=== PATIENT | male | born 1965 | race Caucasian/White ===

== ENCOUNTER 2018-11-22 19:48 | Observation (INO) ==
[2018-11-23] MEDS ORDERED: *HR* Dextrose 50 % in Water (Syg) 50 ML SYRINGE IVP PRN (00:03)
[2018-11-23] MEDS ORDERED: Dextrose Gel 15 GM/37.5 ML TUBE PO PRN ×2 (00:03)
[2018-11-23] MEDS ORDERED: 0.9 % Sodium Chloride 1,000 ML IVC SCH (00:30)
[2018-11-23] MEDS ORDERED: Acetaminophen 325 MG TABLET PO PRN (00:33)
[2018-11-23] MEDS ORDERED: *HR* OxyCODONE Immed Rel 5 MG TABLET PO PRN (00:33)
[2018-11-23] MEDS ORDERED: traMADol 50 MG TABLET PO PRN (00:33)
[2018-11-23] MEDS ORDERED: Naloxone 0.4 MG/ML INJ IVP PRN (00:33)
--- NOTE | 2018-11-23 00:33 | Internal Med History&Physical ---
Date of Encounter: 11/23/18 Time of Encounter: 00:31 Internal Medicine - H&P: HPI Chief complaint: right breast pain Admitted From: Home Plans for Post Hospital Care: Home History of present illness: Yasir Hernandez is a 52 year old morbidly obese man with diabetes, hypertension and chronic kidney disease who presented to [facility] complaining of pain and swelling around his right breast area for the past 6 days. He says he was seen at urgent care on Saturday where he was prescribed TMP/SMX and was told that it was not ready to be lanced yet. Due to the lack of improvement he was again seen at urgent care on Saturday where an antibiotic switch was made to clindamycin. Again he reported feeling no improvement and subsequently felt feverish with chills and sweats. He says he tried to poke it with a hot needle with some drainage obtained. Says the pain had become too severe and achy and upon arrival to [facility] seen that underneath his right breast fold he had a large abscess that was fluctuant intense and an area of erythema measured at 14 x 9 cm. Incision and drainage was performed the setting of large amount of foul-smelling purulent fluid was sent for culture. He was given a dose of cef azolin and clindamycin. Of note, he was seen to have a potassium of 5.8 with a repeat at 5.2 and creatinine of 2.5. No old records are available for comparison as he follows at an outside hospital. He was given insulin, dextrose, calcium gluconate and albuterol as temporizing measures. On arrival here he is in good spirits and has no complaints. He does admit to having multiple abscesses in the past. Past Med Surg Social Fam HX - Past Medical History Medical history: CHF, diabetes, hypertension, renal disease Psychiatric history: no psych history - Social History Smoking Status: Former smoker Smokeless Tobacco Status: No Alcohol use: none Drug use: none Internal Medicine - H&P: Meds Aspirin 81 mg PO DAILY 11/22/18 [History] Atorvastatin [Lipitor] 40 mg PO HS 11/22/18 [History] Ergocalciferol (VITAMIN D2) [Vitamin D2] 2,000 unit PO TID 11/22/18 [History] Furosemide [Lasix] 40 mg PO BID 11/22/18 [History] Glyburide/Metformin HCl [Glyburide-Metformin 5-500 mg] 1 each PO DAILY 11/22/18 [History] Insulin Glargine [Lantus] 70 unit SQ BID 11/22/18 [History] Insulin NPH Hum/Reg Insulin Hm [Humulin 70-30 Vial] 75 unit SQ BID 11/22/18 [History] Labetalol HCl 300 mg PO TID 11/22/18 [History] Lisinopril [Zestril] 10 mg PO DAILY 11/22/18 [History] Magnesium Oxide [Magnesium] 250 mg PO BID 11/22/18 [History] Omeprazole [PriLOSEC] 40 mg PO Q2D 11/22/18 [History] Allergy/AdvReac Type Severity Reaction Status Date / Time meperidine [From Demerol] Allergy Anaphylaxis Verified 11/22/18 17:48 All Systems PM: A 10-system review of systems was performed and is negative for pertinent findings except as documented above in the HPI. Family history reviewed and fou nd non-contributory. - Constitutional Vitals: Temp Pulse Resp BP Pulse Ox 99.7 F H 93 20 123/80 94 11/23/18 00:08 11/23/18 00:08 11/23/18 00:08 11/23/18 00:08 11/23/18 00:08 Exam: Vitals: Reviewed General: Morbidly obese white man sitting up in bed in [facility]. Skin: Tags and acanthosis nigricans on neck. HEENT: Moist mucous membranes. No conjunctivae pallor. Neck: No lymphadenopathy. No JVD. No carotid bruits. No palpable thyroid. Chest: Normal thoracic expansion. Normal breath sounds. Right submamary region with diffuse erythema and induration with a 3cm ulceration at the base that is packed with iodoform. Heart: Normal S1 & S2; rhythmic. No rubs or murmurs. Abdomen: Soft and non-tender to palpation. No peritoneal reaction. Extremities: 3+ pitting edema with active suppuration and hyperpigmentation. Neurological: Awake, alert and oriented to person, place and time. No focal deficits. Psych: Affect appropriate. - Assessment and plan (1) Abscess of right breast Current Visit: Yes Status: Acute Assessment and plan: The patient has the risk factors of morbid obesity and diabetes as well as seemingly poor skin care. He still has significant inflammatory changes present. Will get a CT scan for assessment of the depth of tissue invasion. Will order peripheral blood cultures and start IV vancomycin. The fluid cultures sent at [facility] need to be followed up on to determine adequacy in antibiotic treatment. Will also consult surgery for evaluation given the delicate area and possible need for more I&D. (2) Hyperkalemia Current Visit: Yes Status: Acute Assessment and plan: Seems related to his CKD; he may have a variant of RTA causing this. Will repeat and monitor closely. 1 dose of kayexalate ordered after being given the temporizing measures to lower it. No concerning EKG changes reported. (3) CKD (chronic kidney disease) Current Visit: Yes Status: Acute Assessment and plan: He follows with a doorperson at [facility]. Will avoid contrast and nephrotoxic agents. Qualifiers: Chronic kidney disease stage: stage 3 (moderate) Qualified Code(s): N18.3 - Chronic kidney disease, stage 3 (moderate) (4) HTN (hypertension) Current Visit: Yes Status: Acute Assessment and plan: Will resume his home oral antihypertensive therapy once verified. Qualifiers: Hypertension type: essential hypertension Qualified Code(s): I10 - Essential (primary) hypertension (5) Diabetes mellitus Current Visit: Yes Status: Acute Assessment and plan: He is seen to be on high doses of insulin. Will continue glargine BID as currently dosed at home and use sliding scale coverage rather than the fixed 70/30 for now. Hold oral agents in the interim. Qualifiers: Diabetes mellitus type: type 2 Diabetes mellitus nursing home insulin use: with nursing home use Diabetes mellitus complication status: with kidney complications Diabetes mellitus complication detail: with chronic kidney disease Chronic kidney disease stage: stage 3 (moderate) Qualified Code(s): E11.22 - Type 2 diabetes mellitus with diabetic chronic kidney disease; N18.3 - Chronic kidney disease, stage 3 (moderate); Z79.4 - intermodal dispatcher (current) use of insulin (6) CHF (congestive heart failure) Current Visit: Yes Status: Chronic Assessment and plan: Reported. No signs of acute exacerbation at this time. Will resume his home medications once verified. Qualifiers: Heart failure type: unspecified Heart failure chronicity: chronic Qualified Code(s): I50.9 - Heart failure, unspecified (7) Venous stasis dermatitis of both lower extremities Current Visit: Yes Status: Acute Assessment and plan: Leg elevation and compression stockings advised. (8) DVT prophylaxis Current Visit: Yes Status: Acute Assessment and plan: SubQ heparin ordered. - Time Spent With Patient Total time spent is greater than 50% in coordination of care (as documented) at patient's floor/unit and/or counseling patient: Greater than 35 minutes
[2018-11-23 00:38] LABS: Basophils % 0.2 %; Eosinophils # 0.5 K/mcL (0.0-0.6); Eosinophils % 3.7 %; Hematocrit 44.9 % (37.5-50.1); Hemoglobin 13.9 g/dL (12.9-16.9); Immature Granulocytes % 0.7 % (0-4); Lymphocytes # 0.6 K/mcL (0.6-4.6); Mean Corpuscular Hemoglobin 29.3 pg (28.0-33.3); Mean Corpuscular Volume 94.5 fL (83.0-100.0); Mean Platelet Volume 10.7 fL (9.4-12.4); Monocytes # 1.1 K/mcL (0.0-1.3); Monocytes % 7.6 %; Neutrophils # 11.9 K/mcL (1.6-8.9); Platelet Count 209 K/mcL (140-400); Red Blood Count 4.75 M/mcL (4.19-5.50); Red Cell Distribution Width 14.2 % (11.5-14.5); Segmented Neutrophils % 83.8 %
[2018-11-23 00:45] LABS: INR 1.1; Prothrombin Time 11.9 Seconds (9.4-12.1)
[2018-11-23 00:48] LABS: Activated Partial Thrombo Time 29.3 Seconds (26.0-36.0)
[2018-11-23 00:55] LABS: Calcium 8.7 mg/dL (8.6-10.3); Potassium 5.1 mEq/L (3.5-5.1)
[2018-11-23] MEDS ORDERED: Vancomycin 0 MG in 0.9 % Sodium Chloride 250 ML IVPB SCH (01:00)
[2018-11-23] MEDS: Insulin LISPRO 300 UNITS/3 ML VIAL SQ SCH ×5 (01:29→20:20)
[2018-11-23] MEDS: *HR* Heparin 5,000 UNIT/ML VIAL SQ SCH ×3 (06:54→20:02)
--- NOTE | 2018-11-23 07:58 | Event Note ---
Date of Encounter: 11/23/18 Time of Encounter: 11:10 Mr Hernandez was placed in observation earlier today for abscess/cellulitis under R breast. Mr Hernandez is feeling about the same. He has packing in place. No fever or chills. Still with a lot of erythema around area. CT performed - cellulitis. Plan Agree with assessment and plan per H&P Surgical follow up outpatient Add Zosyn today.
[2018-11-23] MEDS: Aspirin 81 MG TAB.CHEW PO SCH (09:01)
[2018-11-23] MEDS: Piperacillin/Tazobactam 3.375 GM in 0.9 % Sodium Chloride Mini Bag 100 ML IVPB SCH (15:25)
[2018-11-23] MEDS: Insulin DETEMIR 100 UNIT/ML X5UNITS SQ SCH ×2 (15:27→20:02)
[2018-11-24] MEDS: Piperacillin/Tazobactam 3.375 GM in 0.9 % Sodium Chloride Mini Bag 100 ML IVPB SCH ×3 (00:20→15:41)
[2018-11-24] MEDS: *HR* Heparin 5,000 UNIT/ML VIAL SQ SCH ×2 (05:58→14:24)
[2018-11-24] MEDS: Insulin LISPRO 300 UNITS/3 ML VIAL SQ SCH ×4 (07:52→16:53)
[2018-11-24 07:53] LABS: Hematocrit 38.2 % (37.5-50.1); Mean Corpuscular HGB Conc 31.7 g/dL (31.6-35.5); Mean Corpuscular Hemoglobin 29.2 pg (28.0-33.3); Mean Corpuscular Volume 92.3 fL (83.0-100.0); Mean Platelet Volume 10.6 fL (9.4-12.4); Platelet Count 175 K/mcL (140-400); Red Blood Count 4.14 M/mcL (4.19-5.50); Red Cell Distribution Width 14.5 % (11.5-14.5)
[2018-11-24 08:01] LABS: Hemoglobin 12.1 g/dL (12.9-16.9)
[2018-11-24] MEDS: Insulin DETEMIR 100 UNIT/ML X5UNITS SQ SCH (08:01)
[2018-11-24] MEDS: Aspirin 81 MG TAB.CHEW PO SCH (08:02)
[2018-11-24 08:13] LABS: Calcium 8.7 mg/dL (8.6-10.3); Magnesium 1.8 mg/dL (1.6-2.6); Potassium 4.6 mEq/L (3.5-5.1)
--- NOTE | 2018-11-24 14:25 | Discharge Summary ---
<Page Carcamo - Last Filed: 11/24/18 14:53> - NOTES TO OUTPATIENT PROVIDER Notes to Outpatient Provider: Patient will be discharge on augmentin and doxycycline to complete a 14 day course. Preliminary wound culture growing normal skin andreas and final results will need to be verified. The wound is packed with iodoform that will be changed prior to discharge. He will need follow up 11/[address] [place] [address] Middleton and further wound care instructions after that. Orders not resulted at time of discharge: Pending orders 11/23/18 00:24 Culture,Blood [BC] Stat 11/25/18 02:00 Vancomycin,Trough Timed Date of Encounter: 11/24/18 Time of Encounter: 14:24 - Discharge Diagnosis (1) Abscess of right breast Priority: Primary Status: Acute (2) Cellulitis of right breast Priority: Secondary Status: Acute (3) CKD (chronic kidney disease) Priority: Secondary Status: Chronic Qualifiers: Chronic kidney disease stage: stage 3 (moderate) Qualified Code(s): N18.3 - Chronic kidney disease, stage 3 (moderate) (4) Diabetes mellitus Priority: Secondary Status: Chronic Qualifiers: Diabetes mellitus type: type 2 Diabetes mellitus long-term insulin use: with long-term use Diabetes mellitus complication status: with kidney complications Diabetes mellitus complication detail: with chronic kidney disease Chronic kidney disease stage: stage 3 (moderate) Qualified Code(s): E11.22 - Type 2 diabetes mellitus with diabetic chronic kidney disease; N18.3 - Chronic kidney disease, stage 3 (moderate); Z79.4 - manager intermediate (current) use of insulin (5) HTN (hypertension) Priority: Secondary Status: Chronic Qualifiers: Hypertension type: essential hypertension Qualified Code(s): I10 - Essential (primary) hypertension (6) Venous stasis dermatitis of both lower extremities Priority: Secondary Status: Chronic (7) CHF (congestive heart failure) Priority: Secondary Status: Chronic Qualifiers: Heart failure type: unspecified Heart failure chronicity: chronic Qualified Code(s): I50.9 - Heart failure, unspecified Hospital course: Mr. Hernandez is a 52 year old male who was admitted to [facility] 11/23/18-11/24/18 for IV antibiotic treatment of cellulitis and abscess underneath the right breast. He had been experiencing increased pain and swelling 6 days prior and was seen at 11/18 and given TMP/SMX. He did not see much improvement and was switched to clindamycin 11/21. He began to feel feverish and had attempted to I&D the lesion himself with a hot needle, obtaining minimal drainage. He presented to [place] ED 11/22 when the pain became severe. Upont initial presentation to [place] he was noticed to have a fluctuant area of erythema, and I&D was performed with a large amount of foul smelling purulent fluid. Wound culture was sent that is preliminarily growing normal skin andreas. He was given a dose of cefazolin and clindamycin at that time. He was found to have a potassium of 5.8 with a repeat at 5.2 and creatinine of 2.5. No old records are available for comparison as he follows at an outside hospital. He was given insulin, dextrose, calcium gluconate and albuterol as temporizing measures. He was transferred to [facility] for further management. He has been treated with vancomycin and zosyn. His cellulitis is improved and his potassium has normalized. He has been afebrile. The case was discussed wt Dr. Middleton with General Surgery who will follow him in the outpatient setting at [facility]. The patient will be discharged with oral augmentin at renal dose and doxycycline to complete a total 14 day course of antibiotics. Discharge discussed with: patient, family, nurse - Time Spent with Patient Total time spent providing and/or coordinating discharge services: - Discharge Medications Prescriptions: Adhesive Bandage [Adhesive Gauze Pad] 1 each TP BID #10 bandage Amoxicillin/Clavulanate [Augmentin] 500 mg PO BIDWM 12 Days #24 tablet Doxycycline 100 mg PO BID 12 Days #24 capsule Gauze Bandage [Curity] 1 each TP BID #10 sponge Home Medications: Aspirin 81 mg PO DAILY 11/22/18 [History] Atorvastatin [Lipitor] 40 mg PO HS 11/22/18 [History] Ergocalciferol (VITAMIN D2) [Vitamin D2] 2,000 unit PO TID 11/22/18 [History] Furosemide [Lasix] 40 mg PO BID 11/22/18 [History] Glyburide/Metformin HCl [Glyburide-Metformin 5-500 mg] 1 each PO DAILY 11/22/18 [History] Insulin Glargine [Lantus] 70 unit SQ BID 11/22/18 [History] Insulin NPH Hum/Reg Insulin Hm [Humulin 70-30 Vial] 75 unit SQ BID 11/22/18 [History] Labetalol HCl 300 mg PO TID 11/22/18 [History] Lisinopril [Zestril] 10 mg PO DAILY 11/22/18 [History] Magnesium Oxide [Magnesium] 250 mg PO BID 11/22/18 [History] Omeprazole [PriLOSEC] 40 mg PO Q2D 11/22/18 [History] Adhesive Bandage [Adhesive Gauze Pad] 1 each TP BID #10 bandage 11/24/18 [Rx] Amoxicillin/Clavulanate [Augmentin] 500 mg PO BIDWM 12 Days #24 tablet 11/24/18 [Rx] Doxycycline 100 mg PO BID 12 Days #24 capsule 11/24/18 [Rx] Gauze Bandage [Curity] 1 each TP BID #10 sponge 11/24/18 [Rx] Allergies/Adverse Reactions: 3 Allergy/AdvReac Type Severity Reaction Status Date / Time meperidine [From Demerol] Allergy Anaphylaxis Verified 11/22/18 17:48 Date of admission: 11/22/18 23:52 Primary care physician: PCP NONE - Constitutional Vitals: Temp Pulse Resp BP Pulse Ox 98.5 F 73 16 116/75 94 11/24/18 10:55 11/24/18 10:55 11/24/18 10:55 11/24/18 10:55 11/24/18 10:55 Exam: General: Alert and in no acute distress, morbidly obese Skin: Warm, dry, erythema under right breast with 3cm incision site that is packed, serosanguinous drainage. numerous skin tags and acanthosis nigricans on neck HEENT: NC/AT, PERRLA, EOMI, trachea midline Cardiovascular: RRR, no murmur, normal perfusion, peripheral pulses 2+ and equal Respiratory: CTAB, no wheezing, cough, or respiratory distress GI: Soft, nontender, nondistended. Bowel sounds present, obese Extremities: 2+ pitting edea, chronic venous stasis changes Neuro: A&O. No focal deficits noted on exam Psychiatric: Cooperative and appropriate mood and affect - Patient Status Disposition: Home, Self-Care Condition: Good Functional capacity at discharge: independent ambulation Overall status at discharge: patient is progressing back to baseline - Discharge Instructions Instructions: Heart Failure (DC), Breast Abscess Drainage (DC), Chronic Kidney Disease (DC), Diabetes Mellitus Type 2 in Adults (DC), Hyperkalemia (DC), Chronic Hypertension (DC) Follow Up With: Yifan Middleton DO [Partnered Physician] - 11/25/18 4:30 pm (f/u in [place]) Additional Instructions: Keep wound packing in place until you see Dr. Middleton. Keep the area dry, cover with plastic if you shower. Do not immerse in water. Change gauze twice daily or more if there is more drainage. - Diet and Activity Activity: increase activity as tolerated Diet: diabetic diet <Naveen Donnelly - Last Filed: 11/24/18 16:09> Orders not resulted at time of discharge: Pending orders 11/23/18 00:24 Culture,Blood [BC] Stat 11/25/18 02:00 Vancomycin,Trough Timed Date of Encounter: 11/24/18 - Discharge Diagnosis (1) Abscess of right breast Status: Acute (2) Hyperkalemia Priority: Secondary Status: Resolved (3) CKD (chronic kidney disease) Status: Chronic Qualifiers: Chronic kidney disease stage: stage 3 (moderate) Qualified Code(s): N18.3 - Chronic kidney disease, stage 3 (moderate) (4) HTN (hypertension) Status: Chronic Qualifiers: Hypertension type: essential hypertension Qualified Code(s): I10 - Essential (primary) hypertension (5) Diabetes mellitus Status: Chronic Qualifiers: Diabetes mellitus type: type 2 Diabetes mellitus long-term insulin use: with manager intermediate use Diabetes mellitus complication status: with kidney complications Diabetes mellitus complication detail: with chronic kidney disease Chronic kidney disease stage: stage 3 (moderate) Qualified Code(s): E11.22 - Type 2 diabetes mellitus with diabetic chronic kidney disease; N18.3 - Chronic kidney disease, stage 3 (moderate); Z79.4 - penitentiary (current) use of insulin (6) CHF (congestive heart failure) Status: Suspected Qualifiers: Heart failure type: diastolic Heart failure chronicity: chronic Qualified Code(s): I50.32 - Chronic diastolic (congestive) heart failure (7) Venous stasis dermatitis of both lower extremities Status: Chronic (8) Morbid obesity with BMI of 50.0-59.9, adult Priority: Secondary Status: Chronic Hospital course: Mr. Hernandez is a 52 year old male - Time Spent with Patient Total time spent providing and/or coordinating discharge services: Date of admission: 11/22/18 23:52 Primary care physician: PCP NONE - Constitutional Vitals: Temp Pulse Resp BP Pulse Ox 98.9 F 74 19 143/84 94 11/24/18 14:00 11/24/18 14:00 11/24/18 14:00 11/24/18 14:00 11/24/18 14:00 - Attending Attestation I examined this patient and my medical decision-making was reviewed with the Resident Physician on 11/24/18. I agree with the documented findings, disposition and treatment plan as described except to the extent set forth below. Mr Hernnadez has been in observation for cellulitis and abscess under R breast. He had I&D and prelim culture with normal andreas. Final culture to return tomorrow. He has been on IV abx and it has been improving. He is afebrile and WBC now normal. He is ready for discharge home with outpatient surgery follow up. Exam Alert Comfortable Skin under R breas less erythematous. It is still thickened. Less drainage. Packing in place. Not tachycardic No wheeze Plan D/C home today Wound care Follow with surgery this Thurs Augmentin and Doxy
[2018-11-24 15:12] VITALS: BP 143/84
[2018-11-24] MEDS ORDERED: Aminoglycoside Consult 1 EACH MC ONE (19:56)
== END 2018-11-24 19:57 | disposition home or self-care (01) ==
LOC: 3ANU → SUATTDRO 23:52 → 3ANU 11-23 02:16
PROVIDERS: ADMIT Internal Medicine; ATTEND Internal Medicine

== ENCOUNTER 2021-09-22 12:42 | Inpatient (IN) ==
[2021-09-22] MEDS ORDERED: Piperacillin/Tazobactam 3.375 GM in 0.9 % Sodium Chloride Mini Bag 100 ML IVPB ONE (12:58)
[2021-09-22] MEDS ORDERED: Ondansetron 4 MG/2 ML VIAL IVP PRN (13:40)
[2021-09-22] MEDS ORDERED: Naloxone 0.4 MG/ML INJ IVP PRN (13:40)
[2021-09-22] MEDS ORDERED: Acetaminophen 325 MG TABLET PO PRN (13:40)
[2021-09-22 13:55] LABS: Basophils % 0.3 %; Eosinophils # 0.2 K/mcL (0.0-0.6); Hematocrit 41.7 % (37.5-50.1); Hemoglobin 12.7 g/dL (12.9-16.9); Immature Granulocytes % 0.3 % (0-4); Lymphocytes # 0.8 K/mcL (0.6-4.6); Lymphocytes % 6.7 %; Mean Corpuscular HGB Conc 30.5 g/dL (31.6-35.5); Mean Corpuscular Hemoglobin 28.9 pg (28.0-33.3); Mean Platelet Volume 10.8 fL (9.4-12.4); Monocytes # 0.9 K/mcL (0.0-1.3); Monocytes % 7.2 %; Neutrophils # 10.2 K/mcL (1.6-8.9); Platelet Count 244 K/mcL (140-400); Red Blood Count 4.39 M/mcL (4.19-5.50); Red Cell Distribution Width 14.7 % (11.5-14.5); Segmented Neutrophils % 83.5 %; White Blood Count 12.2 K/mcL (4.3-11.1)
[2021-09-22 14:09] LABS: Calcium 8.9 mg/dL (8.6-10.3); Potassium 4.6 mEq/L (3.5-5.1)
[2021-09-22] MEDS ORDERED: Vancomycin 2,000 MG/520 ML IV.SOLN IVPB ONE (16:00)
[2021-09-22] MEDS ORDERED: Piperacillin/Tazobactam 3.375 GM in 0.9 % Sodium Chloride Mini Bag 100 ML IVPB SCH (22:00)
[2021-09-23 05:09] LABS: Basophils # 0.1 K/mcL (0.0-0.2); Basophils % 0.4 %; Eosinophils # 0.3 K/mcL (0.0-0.6); Hematocrit 39.3 % (37.5-50.1); Hemoglobin 11.9 g/dL (12.9-16.9); Immature Granulocytes % 0.5 % (0-4); Lymphocytes # 0.7 K/mcL (0.6-4.6); Lymphocytes % 5.5 %; Mean Corpuscular HGB Conc 30.3 g/dL (31.6-35.5); Mean Corpuscular Hemoglobin 28.2 pg (28.0-33.3); Mean Corpuscular Volume 93.1 fL (83.0-100.0); Mean Platelet Volume 10.9 fL (9.4-12.4); Monocytes # 0.9 K/mcL (0.0-1.3); Monocytes % 6.7 %; Platelet Count 245 K/mcL (140-400); Red Blood Count 4.22 M/mcL (4.19-5.50); Red Cell Distribution Width 14.9 % (11.5-14.5); Segmented Neutrophils % 84.9 %
[2021-09-23 05:11] LABS: Calcium 8.6 mg/dL (8.6-10.3); Magnesium 1.8 mg/dL (1.6-2.6); Potassium 4.5 mEq/L (3.5-5.1)
[2021-09-23 05:14] LABS: INR 1.3; Prothrombin Time 14.7 Seconds (9.4-12.1)
[2021-09-23] MEDS: *HR* Heparin 5,000 UNIT/ML VIAL SQ SCH ×2 (07:16→17:30)
[2021-09-23] MEDS ORDERED: metOLazone 5 MG TABLET PO PRN (09:12)
[2021-09-23] MEDS ORDERED: D5% in Water 1,000 ML IVC PRN (09:21)
[2021-09-23] MEDS ORDERED: *HR* Dextrose 50 % in Water (Syg) 50 ML SYRINGE IVP PRN (09:21)
[2021-09-23] MEDS ORDERED: Dextrose Gel 15 GM/37.5 ML TUBE PO PRN ×2 (09:21)
[2021-09-23] MEDS ORDERED: Ipratropium/Albuterol Neb 3 ML IH PRN (09:23)
[2021-09-23] MEDS: Furosemide 40 MG TABLET PO SCH (12:40)
[2021-09-23] MEDS: Aspirin 81 MG TAB.CHEW PO SCH (12:40)
[2021-09-23] MEDS: Insulin LISPRO 300 UNITS/3 ML VIAL SUBQ SCH ×3 (12:41→21:00)
[2021-09-23] MEDS: carvediloL 25 MG TABLET PO SCH (20:26)
[2021-09-24 05:30] LABS: Basophils % 0.3 %; Eosinophils # 0.3 K/mcL (0.0-0.6); Eosinophils % 2.3 %; Hematocrit 41.1 % (37.5-50.1); Hemoglobin 12.1 g/dL (12.9-16.9); Immature Granulocytes % 0.4 % (0-4); Lymphocytes # 0.8 K/mcL (0.6-4.6); Lymphocytes % 5.9 %; Mean Corpuscular HGB Conc 29.4 g/dL (31.6-35.5); Mean Corpuscular Hemoglobin 28.2 pg (28.0-33.3); Mean Corpuscular Volume 95.8 fL (83.0-100.0); Mean Platelet Volume 10.5 fL (9.4-12.4); Monocytes # 0.9 K/mcL (0.0-1.3); Monocytes % 6.7 %; Neutrophils # 10.9 K/mcL (1.6-8.9); Platelet Count 238 K/mcL (140-400); Red Blood Count 4.29 M/mcL (4.19-5.50); Segmented Neutrophils % 84.4 %; White Blood Count 12.9 K/mcL (4.3-11.1)
[2021-09-24 05:47] LABS: Calcium 8.7 mg/dL (8.6-10.3); Potassium 4.8 mEq/L (3.5-5.1)
[2021-09-24] MEDS: *HR* Heparin 5,000 UNIT/ML VIAL SQ SCH ×2 (07:03→17:54)
[2021-09-24] MEDS: Insulin LISPRO 300 UNITS/3 ML VIAL SUBQ SCH ×4 (07:49→21:05)
[2021-09-24] MEDS: Aspirin 81 MG TAB.CHEW PO SCH (07:55)
[2021-09-24] MEDS: carvediloL 25 MG TABLET PO SCH ×2 (07:55→20:56)
[2021-09-24] MEDS: Cholecalciferol (D-3) 1,000 UNIT (25MCG) TABLET PO SCH (07:55)
[2021-09-24] MEDS: Furosemide 40 MG TABLET PO SCH (07:55)
[2021-09-24] MEDS: Magnesium Oxide 400 MG TABLET PO SCH (07:55)
[2021-09-24] MEDS: allopurinoL 100 MG TABLET PO SCH (07:56)
[2021-09-24] MEDS: Cyanocobalamin (B-12) 1,000 MCG TABLET PO SCH (07:56)
[2021-09-24] MEDS: *HR* OxyCODONE Immed Rel 5 MG TABLET PO PRN (14:52)
[2021-09-25 00:58] LABS: Basophils % 0.2 %; Eosinophils # 0.3 K/mcL (0.0-0.6); Eosinophils % 2.2 %; Hematocrit 39.6 % (37.5-50.1); Hemoglobin 11.6 g/dL (12.9-16.9); Immature Granulocytes % 0.6 % (0-4); Lymphocytes # 0.6 K/mcL (0.6-4.6); Lymphocytes % 4.4 %; Mean Corpuscular HGB Conc 29.3 g/dL (31.6-35.5); Mean Corpuscular Hemoglobin 28.2 pg (28.0-33.3); Mean Corpuscular Volume 96.1 fL (83.0-100.0); Mean Platelet Volume 10.8 fL (9.4-12.4); Monocytes # 0.9 K/mcL (0.0-1.3); Monocytes % 6.5 %; Neutrophils # 11.8 K/mcL (1.6-8.9); Platelet Count 220 K/mcL (140-400); Red Blood Count 4.12 M/mcL (4.19-5.50); Red Cell Distribution Width 14.7 % (11.5-14.5); Segmented Neutrophils % 86.1 %; White Blood Count 13.7 K/mcL (4.3-11.1)
[2021-09-25 01:13] LABS: Calcium 8.7 mg/dL (8.6-10.3)
[2021-09-25] MEDS: *HR* Heparin 5,000 UNIT/ML VIAL SQ SCH ×2 (08:15→17:09)
[2021-09-25] MEDS: Furosemide 40 MG TABLET PO SCH (08:21)
[2021-09-25] MEDS: carvediloL 25 MG TABLET PO SCH ×2 (08:32→21:50)
[2021-09-25] MEDS: allopurinoL 100 MG TABLET PO SCH (08:33)
[2021-09-25] MEDS: Cyanocobalamin (B-12) 1,000 MCG TABLET PO SCH (08:34)
[2021-09-25] MEDS: Magnesium Oxide 400 MG TABLET PO SCH (08:34)
[2021-09-25] MEDS: Aspirin 81 MG TAB.CHEW PO SCH (08:34)
[2021-09-25] MEDS: Cholecalciferol (D-3) 1,000 UNIT (25MCG) TABLET PO SCH (08:34)
[2021-09-25] MEDS: Insulin LISPRO 300 UNITS/3 ML VIAL SUBQ SCH ×4 (08:36→21:52)
[2021-09-25] MEDS ORDERED: *HR* FentaNYL (PF) 100 MCG/2 ML VIAL IVP PRN (09:15)
[2021-09-25] MEDS ORDERED: *HR* HYDROmorphone PF 0.5 MG/0.5 ML SYRINGE IVP PRN (09:15)
[2021-09-25] MEDS ORDERED: 0.9 % Sodium Chloride 1,000 ML IVC SCH (11:00)
[2021-09-25] MEDS ORDERED: *HR* FentaNYL (PF) 100 MCG/2 ML VIAL ONE (11:20)
[2021-09-25] MEDS ORDERED: *HR* Midazolam HCl 2 MG/2 ML VIAL ONE (11:20)
[2021-09-25] MEDS ORDERED: Lidocaine -MPF 2% 5 ML VIAL ONE (11:22)
[2021-09-25] MEDS ORDERED: 0.9 % Sodium Chloride 1,000 ML ONE (11:30)
[2021-09-25] MEDS ORDERED: ceFAZolin 3,000 MG in Water for inj. (sterile) 30 ML IVP ONE (11:30)
[2021-09-25] MEDS ORDERED: Famotidine 20 MG/2 ML VIAL IVP ONE (11:45)
[2021-09-25] MEDS ORDERED: Acetaminophen IV 1,000 MG/100 ML BAG IVPB ONE (11:45)
[2021-09-25] MEDS ORDERED: Bupivacaine-MPF 0.25% 10 ML VIAL ONE (12:40)
[2021-09-25] MEDS ORDERED: EPHEDrine 50 MG/ML VIAL ONE (13:25)
[2021-09-25] MEDS ORDERED: Ondansetron 4 MG/2 ML VIAL ONE (13:36)
[2021-09-25] MEDS ORDERED: Ondansetron 4 MG/2 ML VIAL IVP PRN (14:21)
[2021-09-25] MEDS: 0.9 % Sodium Chloride 1,000 ML IVC SCH (16:07)
[2021-09-25] MEDS: DAPTOmycin 750 MG in 0.9 % Sodium Chloride 100 ML IVPB SCH (16:08)
[2021-09-25] MEDS: Piperacillin/Tazobactam 3.375 GM in 0.9 % Sodium Chloride Mini Bag 100 ML IVPB SCH (17:08)
[2021-09-26] MEDS: Piperacillin/Tazobactam 3.375 GM in 0.9 % Sodium Chloride Mini Bag 100 ML IVPB SCH ×3 (00:04→17:03)
[2021-09-26 02:26] LABS: Basophils % 0.3 %; Eosinophils # 0.1 K/mcL (0.0-0.6); Eosinophils % 0.5 %; Hematocrit 39.5 % (37.5-50.1); Hemoglobin 11.6 g/dL (12.9-16.9); Immature Granulocytes % 0.9 % (0-4); Lymphocytes # 0.5 K/mcL (0.6-4.6); Lymphocytes % 3.4 %; Mean Corpuscular HGB Conc 29.4 g/dL (31.6-35.5); Mean Corpuscular Hemoglobin 29.1 pg (28.0-33.3); Mean Corpuscular Volume 99.2 fL (83.0-100.0); Mean Platelet Volume 10.5 fL (9.4-12.4); Monocytes # 0.8 K/mcL (0.0-1.3); Monocytes % 5.2 %; Neutrophils # 13.6 K/mcL (1.6-8.9); Nucleated Red Blood Cells 0.1 /100 WBC (0); Platelet Count 233 K/mcL (140-400); Red Blood Count 3.98 M/mcL (4.19-5.50); Red Cell Distribution Width 14.7 % (11.5-14.5); Segmented Neutrophils % 89.7 %; White Blood Count 15.1 K/mcL (4.3-11.1)
[2021-09-26] MEDS: *HR* OxyCODONE Immed Rel 5 MG TABLET PO PRN (02:51)
[2021-09-26 03:44] LABS: Calcium 8.7 mg/dL (8.6-10.3); Potassium 6.3 mEq/L (3.5-5.1)
[2021-09-26] MEDS: *HR* Heparin 5,000 UNIT/ML VIAL SQ SCH ×2 (05:00→17:20)
[2021-09-26] MEDS: Insulin LISPRO 300 UNITS/3 ML VIAL SUBQ SCH ×4 (07:52→21:15)
[2021-09-26] MEDS: Cyanocobalamin (B-12) 1,000 MCG TABLET PO SCH (07:57)
[2021-09-26] MEDS: Cholecalciferol (D-3) 1,000 UNIT (25MCG) TABLET PO SCH (07:58)
[2021-09-26] MEDS: carvediloL 25 MG TABLET PO SCH ×2 (07:58→18:26)
[2021-09-26] MEDS: allopurinoL 100 MG TABLET PO SCH (07:59)
[2021-09-26] MEDS: Furosemide 40 MG TABLET PO SCH (07:59)
[2021-09-26] MEDS: Magnesium Oxide 400 MG TABLET PO SCH (07:59)
[2021-09-26] MEDS: Aspirin 81 MG TAB.CHEW PO SCH (07:59)
[2021-09-26] MEDS: SODIUM ZIRCONIUM CYCLOSILICATE 5 GM POWD.PACK PO SCH (10:34)
[2021-09-26 12:03] LABS: Uric Acid 9.4 mg/dL (2.3-7.6)
[2021-09-26 14:10] LABS: ABG Base Excess -5 mEq/L (-2 to 3); ABG HCO3 25 mEq/L (21-27); ABG Oxygen Saturation 49 % (95-98); ABG PCO2 71 mmHg (35-45); ABG PH 7.16 pH Units (7.32-7.45); ABG PO2 34 mmHg (85-104); ABG TCO2 27 mEq/L (20-26)
[2021-09-26] MEDS: DAPTOmycin 750 MG in 0.9 % Sodium Chloride 100 ML IVPB SCH (16:57)
[2021-09-26 17:30] LABS: ABG Base Excess -5 mEq/L (-2 to 3); ABG HCO3 27 mEq/L (21-27); ABG Oxygen Saturation 96 % (95-98); ABG PCO2 93 mmHg (35-45); ABG PH 7.08 pH Units (7.32-7.45); ABG PO2 114 mmHg (85-104); ABG TCO2 30 mEq/L (20-26)
[2021-09-26] MEDS ORDERED: *HR* LORazepam 2 MG/ML VIAL IVP ONE (19:39)
[2021-09-26 21:42] LABS: Calcium 8.5 mg/dL (8.6-10.3); Potassium 5.8 mEq/L (3.5-5.1)
[2021-09-26] MEDS ORDERED: Calcium Gluconate 1gm/50mL 1 GM/50 ML BAG IVPB ONE (22:15)
[2021-09-26] MEDS ORDERED: Insulin Human Regular 5 UNIT in 0.9 % Sodium Chloride 10 ML IV ONE (22:44)
[2021-09-26] MEDS ORDERED: Albuterol 2.5 MG/3 ML NEBULIZER IH ONE (22:45)
[2021-09-27] MEDS: Piperacillin/Tazobactam 3.375 GM in 0.9 % Sodium Chloride Mini Bag 100 ML IVPB SCH ×3 (01:05→17:55)
[2021-09-27 02:06] LABS: Basophils # 0.1 K/mcL (0.0-0.2); Basophils % 0.4 %; Eosinophils # 0.2 K/mcL (0.0-0.6); Eosinophils % 1.3 %; Hematocrit 41.2 % (37.5-50.1); Hemoglobin 11.9 g/dL (12.9-16.9); Lymphocytes # 0.5 K/mcL (0.6-4.6); Lymphocytes % 4.1 %; Mean Corpuscular HGB Conc 28.9 g/dL (31.6-35.5); Mean Corpuscular Hemoglobin 28.5 pg (28.0-33.3); Mean Corpuscular Volume 98.8 fL (83.0-100.0); Mean Platelet Volume 10.7 fL (9.4-12.4); Monocytes # 0.8 K/mcL (0.0-1.3); Monocytes % 6.6 %; Neutrophils # 10.7 K/mcL (1.6-8.9); Platelet Count 249 K/mcL (140-400); Red Blood Count 4.17 M/mcL (4.19-5.50); Red Cell Distribution Width 14.6 % (11.5-14.5); Segmented Neutrophils % 86.6 %; White Blood Count 12.4 K/mcL (4.3-11.1)
[2021-09-27 02:22] LABS: Calcium 8.6 mg/dL (8.6-10.3); Potassium 5.8 mEq/L (3.5-5.1)
[2021-09-27 02:29] LABS: Anisocytosis 1+ (Not Present); Platelet Estimate Normal (Normal)
[2021-09-27] MEDS ORDERED: Insulin Human Regular 5 UNIT in 0.9 % Sodium Chloride 10 ML IV ONE (03:06)
[2021-09-27] MEDS ORDERED: Calcium Gluconate 1gm/50mL 1 GM/50 ML BAG IVPB ONE (03:07)
[2021-09-27 04:32] LABS: ABG Base Excess -6 mEq/L (-2 to 3); ABG HCO3 26 mEq/L (21-27); ABG Oxygen Saturation 96 % (95-98); ABG PCO2 78 mmHg (35-45); ABG PH 7.13 pH Units (7.32-7.45); ABG PO2 113 mmHg (85-104); ABG TCO2 28 mEq/L (20-26)
[2021-09-27] MEDS: *HR* Heparin 5,000 UNIT/ML VIAL SQ SCH ×2 (06:00→17:57)
[2021-09-27 06:17] LABS: Calcium 8.6 mg/dL (8.6-10.3); Potassium 5.6 mEq/L (3.5-5.1)
[2021-09-27] MEDS: allopurinoL 100 MG TABLET PO SCH (08:29)
[2021-09-27] MEDS: Cyanocobalamin (B-12) 1,000 MCG TABLET PO SCH (08:29)
[2021-09-27] MEDS: Magnesium Oxide 400 MG TABLET PO SCH (08:29)
[2021-09-27] MEDS: Cholecalciferol (D-3) 1,000 UNIT (25MCG) TABLET PO SCH (08:29)
[2021-09-27] MEDS: Aspirin 81 MG TAB.CHEW PO SCH (08:29)
[2021-09-27] MEDS: SODIUM ZIRCONIUM CYCLOSILICATE 5 GM POWD.PACK PO SCH (08:29)
[2021-09-27] MEDS: carvediloL 25 MG TABLET PO SCH ×2 (08:29→17:56)
[2021-09-27] MEDS: Insulin LISPRO 300 UNITS/3 ML VIAL SUBQ SCH ×4 (08:30→20:19)
[2021-09-27] MEDS ORDERED: Heparin 1,000 UNITS/500 mL 500 ML ONE (09:11)
[2021-09-27] MEDS ORDERED: Lidocaine/EPI 1:100k 1% 50 ML VIAL ONE (09:11)
[2021-09-27] MEDS ORDERED: *HR* Heparin 5,000 UNIT/ML VIAL ONE (09:47)
[2021-09-27] MEDS ORDERED: 0.9 % Sodium Chloride 250 ML IVC PRN (10:53)
[2021-09-27] MEDS ORDERED: *HR* Heparin 10,000 UNIT/10 ML VIAL IV PRN (10:53)
[2021-09-27] MEDS ORDERED: 0.9 % Sodium Chloride 1,000 ML PRIME SCH (11:00)
[2021-09-27] MEDS: 0.9 % Sodium Chloride 1,000 ML IVC SCH (11:01)
[2021-09-27] MEDS: *HR* OxyCODONE Immed Rel 5 MG TABLET PO PRN (13:03)
[2021-09-27 13:34] LABS: Hepatitis B Surface Antibody < 3.10 mIU/mL
[2021-09-27 13:45] LABS: Hepatitis B Surface Antigen Nonreactive (Nonreactive)
[2021-09-27] MEDS: DAPTOmycin 750 MG in 0.9 % Sodium Chloride 100 ML IVPB SCH (17:55)
[2021-09-27 18:49] LABS: ABG Base Excess -4 mEq/L (-2 to 3); ABG HCO3 29 mEq/L (21-27); ABG Oxygen Saturation 96 % (95-98); ABG PCO2 89 mmHg (35-45); ABG PH 7.11 pH Units (7.32-7.45); ABG PO2 109 mmHg (85-104); ABG TCO2 31 mEq/L (20-26)
[2021-09-27 20:39] LABS: ABG Base Excess -3 mEq/L (-2 to 3); ABG HCO3 29 mEq/L (21-27); ABG Oxygen Saturation 95 % (95-98); ABG PCO2 97 mmHg (35-45); ABG PH 7.09 pH Units (7.32-7.45); ABG PO2 107 mmHg (85-104); ABG TCO2 32 mEq/L (20-26)
[2021-09-27] MEDS: Dexmedetomidine HCl 400 MCG/100 ML MLS IVC SCH (20:44)
[2021-09-27] MEDS: *HR* LORazepam 2 MG/ML VIAL IVP PRN (23:50)
[2021-09-28] MEDS: Piperacillin/Tazobactam 3.375 GM in 0.9 % Sodium Chloride Mini Bag 100 ML IVPB SCH ×3 (01:17→20:12)
[2021-09-28] MEDS: *HR* Heparin 5,000 UNIT/ML VIAL SQ SCH ×2 (05:07→20:12)
[2021-09-28] MEDS: Dexmedetomidine HCl 400 MCG/100 ML MLS IVC SCH ×4 (05:07→22:06)
[2021-09-28] MEDS: *HR* LORazepam 2 MG/ML VIAL IVP PRN ×2 (06:45→10:49)
[2021-09-28 06:50] LABS: Calcium 8.5 mg/dL (8.6-10.3); Potassium 5.4 mEq/L (3.5-5.1)
[2021-09-28 07:21] LABS: Hematocrit 38.6 % (37.5-50.1); Hemoglobin 11.6 g/dL (12.9-16.9); Mean Corpuscular HGB Conc 30.1 g/dL (31.6-35.5); Mean Corpuscular Hemoglobin 28.9 pg (28.0-33.3); Mean Platelet Volume 10.9 fL (9.4-12.4); Platelet Count 249 K/mcL (140-400); Red Blood Count 4.02 M/mcL (4.19-5.50); Red Cell Distribution Width 14.3 % (11.5-14.5); White Blood Count 9.4 K/mcL (4.3-11.1)
[2021-09-28] MEDS: Insulin LISPRO 300 UNITS/3 ML VIAL SUBQ SCH ×4 (08:40→21:32)
[2021-09-28] MEDS ORDERED: 0.9 % Sodium Chloride 250 ML IVC PRN (09:00)
[2021-09-28] MEDS ORDERED: 0.9 % Sodium Chloride 1,000 ML PRIME SCH (09:00)
[2021-09-28] MEDS ORDERED: *HR* Heparin 10,000 UNIT/10 ML VIAL IV PRN (09:00)
[2021-09-28] MEDS ORDERED: SODIUM ZIRCONIUM CYCLOSILICATE 5 GM POWD.PACK PO SCH ×2 (09:00)
[2021-09-28] MEDS ORDERED: Piperacillin/Tazobactam 3.375 GM VIAL ONE (09:06)
[2021-09-28] MEDS: allopurinoL 100 MG TABLET PO SCH (09:24)
[2021-09-28] MEDS: Cholecalciferol (D-3) 1,000 UNIT (25MCG) TABLET PO SCH (09:24)
[2021-09-28] MEDS: Cyanocobalamin (B-12) 1,000 MCG TABLET PO SCH (09:24)
[2021-09-28] MEDS: carvediloL 25 MG TABLET PO SCH ×2 (09:24→19:04)
[2021-09-28] MEDS: Magnesium Oxide 400 MG TABLET PO SCH (09:25)
[2021-09-28] MEDS: SODIUM ZIRCONIUM CYCLOSILICATE 5 GM POWD.PACK PO SCH ×3 (09:25→20:04)
[2021-09-28] MEDS: Aspirin 81 MG TAB.CHEW PO SCH (09:26)
[2021-09-28 10:07] LABS: Sodium, Urine 16.2 mEq/L
[2021-09-28 18:38] LABS: ABG Base Excess 2 mEq/L (-2 to 3); ABG HCO3 32 mEq/L (21-27); ABG Oxygen Saturation 97 % (95-98); ABG PCO2 75 mmHg (35-45); ABG PH 7.24 pH Units (7.32-7.45); ABG PO2 113 mmHg (85-104); ABG TCO2 34 mEq/L (20-26)
[2021-09-29] MEDS: *HR* Heparin 5,000 UNIT/ML VIAL SQ SCH ×2 (05:38→18:44)
[2021-09-29] MEDS: *HR* LORazepam 2 MG/ML VIAL IVP PRN ×3 (05:38→21:16)
[2021-09-29] MEDS: Insulin LISPRO 300 UNITS/3 ML VIAL SUBQ SCH ×4 (08:04→19:54)
[2021-09-29] MEDS: Aspirin 81 MG TAB.CHEW PO SCH (08:05)
[2021-09-29] MEDS: Cyanocobalamin (B-12) 1,000 MCG TABLET PO SCH (08:05)
[2021-09-29] MEDS: Magnesium Oxide 400 MG TABLET PO SCH (08:05)
[2021-09-29] MEDS: carvediloL 25 MG TABLET PO SCH ×2 (08:05→18:37)
[2021-09-29] MEDS: Cholecalciferol (D-3) 1,000 UNIT (25MCG) TABLET PO SCH (08:05)
[2021-09-29] MEDS: allopurinoL 100 MG TABLET PO SCH (08:06)
[2021-09-29 08:10] LABS: Hematocrit 38.3 % (37.5-50.1); Hemoglobin 11.2 g/dL (12.9-16.9); Mean Corpuscular HGB Conc 29.2 g/dL (31.6-35.5); Mean Corpuscular Hemoglobin 27.8 pg (28.0-33.3); Mean Platelet Volume 11.1 fL (9.4-12.4); Platelet Count 227 K/mcL (140-400); Red Blood Count 4.03 M/mcL (4.19-5.50); Red Cell Distribution Width 14.2 % (11.5-14.5); White Blood Count 7.5 K/mcL (4.3-11.1)
[2021-09-29] MEDS: Dexmedetomidine HCl 400 MCG/100 ML MLS IVC SCH (08:13)
[2021-09-29] MEDS: Piperacillin/Tazobactam 3.375 GM in 0.9 % Sodium Chloride Mini Bag 100 ML IVPB SCH ×2 (08:15→20:05)
[2021-09-29 08:20] LABS: Calcium 8.5 mg/dL (8.6-10.3); Potassium 4.9 mEq/L (3.5-5.1)
[2021-09-29] MEDS ORDERED: SODIUM ZIRCONIUM CYCLOSILICATE 5 GM POWD.PACK PO SCH (09:00)
[2021-09-29 09:22] LABS: ABG Base Excess 0 mEq/L (-2 to 3); ABG HCO3 30 mEq/L (21-27); ABG Oxygen Saturation 97 % (95-98); ABG PCO2 69 mmHg (35-45); ABG PH 7.24 pH Units (7.32-7.45); ABG PO2 110 mmHg (85-104); ABG TCO2 32 mEq/L (20-26)
[2021-09-29] MEDS ORDERED: 0.9 % Sodium Chloride 250 ML IVC PRN (10:49)
[2021-09-29] MEDS ORDERED: *HR* Heparin 10,000 UNIT/10 ML VIAL IV PRN (10:49)
[2021-09-29] MEDS ORDERED: *HR* LORazepam 2 MG/ML VIAL IVP ONE (18:24)
[2021-09-29 18:43] LABS: ABG Base Excess 1 mEq/L (-2 to 3); ABG HCO3 30 mEq/L (21-27); ABG Oxygen Saturation 95 % (95-98); ABG PCO2 69 mmHg (35-45); ABG PH 7.25 pH Units (7.32-7.45); ABG PO2 92 mmHg (85-104); ABG TCO2 32 mEq/L (20-26); Blood Gas Modality BiLevel
[2021-09-29] MEDS: DAPTOmycin 750 MG in 0.9 % Sodium Chloride 100 ML IVPB SCH (18:44)
[2021-09-29] MEDS: hydrALAZINE 25 MG TABLET PO SCH (22:16)
[2021-09-30] MEDS: Dexmedetomidine HCl 400 MCG/100 ML MLS IVC SCH ×3 (00:47→23:56)
[2021-09-30] MEDS: *HR* LORazepam 2 MG/ML VIAL IVP PRN (02:45)
[2021-09-30 04:53] LABS: Hematocrit 37.9 % (37.5-50.1); Hemoglobin 11.1 g/dL (12.9-16.9); Mean Corpuscular HGB Conc 29.3 g/dL (31.6-35.5); Mean Corpuscular Hemoglobin 27.7 pg (28.0-33.3); Mean Corpuscular Volume 94.5 fL (83.0-100.0); Mean Platelet Volume 10.1 fL (9.4-12.4); Platelet Count 214 K/mcL (140-400); Red Blood Count 4.01 M/mcL (4.19-5.50); Red Cell Distribution Width 14.1 % (11.5-14.5); White Blood Count 7.2 K/mcL (4.3-11.1)
[2021-09-30 05:12] LABS: Potassium 4.4 mEq/L (3.5-5.1)
[2021-09-30] MEDS: *HR* Heparin 5,000 UNIT/ML VIAL SQ SCH ×2 (06:51→17:36)
[2021-09-30] MEDS ORDERED: 0.9 % Sodium Chloride 250 ML IVC PRN ×2 (07:45→07:54)
[2021-09-30] MEDS ORDERED: 0.9 % Sodium Chloride 1,000 ML PRIME SCH ×2 (07:45→08:00)
[2021-09-30] MEDS ORDERED: *HR* Heparin 10,000 UNIT/10 ML VIAL IV PRN (07:54)
[2021-09-30] MEDS: Insulin LISPRO 300 UNITS/3 ML VIAL SUBQ SCH ×4 (08:16→22:47)
[2021-09-30] MEDS ORDERED: 0.9 % Sodium Chloride 2,000 ML ONE (08:17)
[2021-09-30 08:58] LABS: ABG Base Excess -1 mEq/L (-2 to 3); ABG HCO3 29 mEq/L (21-27); ABG Oxygen Saturation 96 % (95-98); ABG PCO2 75 mmHg (35-45); ABG PO2 105 mmHg (85-104); ABG TCO2 31 mEq/L (20-26); Blood Gas VT 550 cc
[2021-09-30] MEDS: allopurinoL 100 MG TABLET PO SCH (09:29)
[2021-09-30] MEDS: Aspirin 81 MG TAB.CHEW PO SCH (09:29)
[2021-09-30] MEDS: Cyanocobalamin (B-12) 1,000 MCG TABLET PO SCH (09:30)
[2021-09-30] MEDS: Magnesium Oxide 400 MG TABLET PO SCH (09:30)
[2021-09-30] MEDS: Cholecalciferol (D-3) 1,000 UNIT (25MCG) TABLET PO SCH (09:30)
[2021-09-30] MEDS: Piperacillin/Tazobactam 3.375 GM in 0.9 % Sodium Chloride Mini Bag 100 ML IVPB SCH ×2 (09:31→17:36)
[2021-09-30] MEDS: carvediloL 25 MG TABLET PO SCH ×3 (09:37→17:50)
[2021-09-30] MEDS: Furosemide 40 MG TABLET PO SCH ×3 (09:40→17:50)
[2021-09-30] MEDS: hydrALAZINE 25 MG TABLET PO SCH ×2 (09:40→22:47)
[2021-09-30] MEDS: *HR* OxyCODONE Immed Rel 5 MG TABLET PO PRN (13:26)
[2021-09-30] MEDS ORDERED: Furosemide 40 MG/4 ML VIAL IVP ONE (18:21)
[2021-10-01] MEDS: Piperacillin/Tazobactam 3.375 GM in 0.9 % Sodium Chloride Mini Bag 100 ML IVPB SCH ×3 (03:27→19:00)
[2021-10-01] MEDS: *HR* OxyCODONE Immed Rel 5 MG TABLET PO PRN (04:10)
[2021-10-01] MEDS: *HR* Heparin 5,000 UNIT/ML VIAL SQ SCH ×2 (06:14→18:26)
[2021-10-01] MEDS: Dexmedetomidine HCl 400 MCG/100 ML MLS IVC SCH ×2 (07:30→21:31)
[2021-10-01 10:14] LABS: ABG Base Excess -1 mEq/L (-2 to 3); ABG HCO3 27 mEq/L (21-27); ABG Oxygen Saturation 69 % (95-98); ABG PCO2 59 mmHg (35-45); ABG PH 7.27 pH Units (7.32-7.45); ABG PO2 42 mmHg (85-104); ABG TCO2 29 mEq/L (20-26)
[2021-10-01 11:22] LABS: Potassium 5.2 mEq/L (3.5-5.1)
[2021-10-01] MEDS: Insulin LISPRO 300 UNITS/3 ML VIAL SUBQ SCH ×4 (12:26→21:31)
[2021-10-01] MEDS: Cholecalciferol (D-3) 1,000 UNIT (25MCG) TABLET PO SCH (13:08)
[2021-10-01] MEDS: Magnesium Oxide 400 MG TABLET PO SCH (13:09)
[2021-10-01] MEDS: carvediloL 25 MG TABLET PO SCH ×2 (13:09→18:40)
[2021-10-01] MEDS: hydrALAZINE 25 MG TABLET PO SCH ×2 (13:10→21:54)
[2021-10-01] MEDS: Aspirin 81 MG TAB.CHEW PO SCH (13:10)
[2021-10-01] MEDS: Cyanocobalamin (B-12) 1,000 MCG TABLET PO SCH (13:10)
[2021-10-01] MEDS: allopurinoL 100 MG TABLET PO SCH (13:11)
[2021-10-01] MEDS: Furosemide 40 MG/4 ML VIAL IVP SCH ×2 (13:11→21:54)
[2021-10-01] MEDS: *HR* LORazepam 2 MG/ML VIAL IVP PRN (18:26)
[2021-10-01] MEDS: DAPTOmycin 750 MG in 0.9 % Sodium Chloride 100 ML IVPB SCH (18:27)
[2021-10-02] MEDS: *HR* OxyCODONE Immed Rel 5 MG TABLET PO PRN ×4 (00:25→21:37)
[2021-10-02] MEDS: Piperacillin/Tazobactam 3.375 GM in 0.9 % Sodium Chloride Mini Bag 100 ML IVPB SCH (03:38)
[2021-10-02] MEDS: *HR* Heparin 5,000 UNIT/ML VIAL SQ SCH (05:42)
[2021-10-02] MEDS: Dexmedetomidine HCl 400 MCG/100 ML MLS IVC SCH (06:03)
[2021-10-02 06:55] LABS: Basophils # 0.1 K/mcL (0.0-0.2); Basophils % 0.7 %; Eosinophils # 0.2 K/mcL (0.0-0.6); Eosinophils % 2.5 %; Hematocrit 37.5 % (37.5-50.1); Hemoglobin 11.1 g/dL (12.9-16.9); Immature Granulocytes % 1.1 % (0-4); Lymphocytes # 0.5 K/mcL (0.6-4.6); Lymphocytes % 6.7 %; Mean Corpuscular HGB Conc 29.6 g/dL (31.6-35.5); Mean Corpuscular Hemoglobin 27.7 pg (28.0-33.3); Mean Corpuscular Volume 93.5 fL (83.0-100.0); Mean Platelet Volume 10.2 fL (9.4-12.4); Monocytes # 0.6 K/mcL (0.0-1.3); Monocytes % 8.3 %; Neutrophils # 5.8 K/mcL (1.6-8.9); Platelet Count 229 K/mcL (140-400); Red Blood Count 4.01 M/mcL (4.19-5.50); Red Cell Distribution Width 14.5 % (11.5-14.5); Segmented Neutrophils % 80.7 %; White Blood Count 7.1 K/mcL (4.3-11.1)
[2021-10-02 07:08] LABS: Calcium 7.8 mg/dL (8.6-10.3); Potassium 4.9 mEq/L (3.5-5.1)
[2021-10-02] MEDS ORDERED: 0.9 % Sodium Chloride 250 ML IVC PRN (07:49)
[2021-10-02] MEDS ORDERED: *HR* Heparin 10,000 UNIT/10 ML VIAL IV PRN (07:58)
[2021-10-02] MEDS ORDERED: 0.9 % Sodium Chloride 1,000 ML PRIME SCH (08:00)
[2021-10-02] MEDS: allopurinoL 100 MG TABLET PO SCH (08:40)
[2021-10-02] MEDS: Furosemide 40 MG/4 ML VIAL IVP SCH (08:40)
[2021-10-02] MEDS: Aspirin 81 MG TAB.CHEW PO SCH (08:41)
[2021-10-02] MEDS: Cholecalciferol (D-3) 1,000 UNIT (25MCG) TABLET PO SCH (08:41)
[2021-10-02] MEDS: Magnesium Oxide 400 MG TABLET PO SCH (08:42)
[2021-10-02] MEDS: Cyanocobalamin (B-12) 1,000 MCG TABLET PO SCH (08:42)
[2021-10-02] MEDS: Insulin LISPRO 300 UNITS/3 ML VIAL SUBQ SCH ×3 (08:43→15:49)
[2021-10-02] MEDS: hydrALAZINE 25 MG TABLET PO SCH (08:46)
[2021-10-02] MEDS: carvediloL 25 MG TABLET PO SCH ×2 (08:46→19:11)
[2021-10-02 11:39] VITALS: PULSE 59; TEMP 98.9
[2021-10-02 13:30] VITALS: BP 142/73; O2SAT 93
[2021-10-02] MEDS ORDERED: Piperacillin/Tazobactam 3.375 GM in 0.9 % Sodium Chloride Mini Bag 100 ML IVPB SCH (16:00)
== END 2021-10-02 21:56 | disposition hospice, home (50) | DRG 477 ==
LOC: EMEROOARM 12:42 → 3ANU 12:42 → SUATTDRO 19:05 → 2NNU 09-26 20:17 → 2NENU 10-02 13:26
PROVIDERS: ADMIT Pharmacist; ATTEND Family Medicine
PROC: IRPERMA (2021-09-27 12:00)